=== PATIENT | female | born 1990 | race Caucasian/White ===

== ENCOUNTER 2019-02-07 05:12 | Inpatient (IN) | payer OTHER ==
[~2019-02-07] VITALS: Ht 167.6 cm; Wt 84.4 kg
[2019-02-07] MEDS ORDERED: LACTATED RINGERS 1000ML 1,000 ML IV PRN (06:37)
[2019-02-07] MEDS ORDERED: OXYTOCIN-LR 20 UNITS/1000 ML 1,000 ML IV ONE ×3 (06:43→19:05)
[2019-02-07] MEDS ORDERED: MEPERIDINE-PF 50 MG/ML SYG IVP PRN (06:45)
[2019-02-07] MEDS ORDERED: OXYTOCIN 10 USP UNITS/ML 20 UNIT in LACTATED RINGERS 1000ML 1,000 ML IV SCH (06:45)
[2019-02-07] MEDS ORDERED: PROMETHAZINE HCL 25 MG/ML 1ML AMPULE IM PRN (06:45)
[2019-02-07 07:15] VITALS: BP 118/68
[2019-02-07 07:26] LABS: APPEARANCE,URINE Cloudy (CLEAR); BILIRUBIN,URINE Negative (NEGATIVE); COLOR,URINE Yellow (YELLOW); GLUCOSE, URINE (UA) Negative (NEGATIVE); KETONES,URINE Negative (NEGATIVE); LEUKOCYTE ESTERASE ,URINE Moderate (NEGATIVE); NITRATE,URINE Negative (NEGATIVE); OCCULT BLOOD,URINE Large (NEGATIVE); PH,URINE 6.5 (5.0-8.0); PROTEIN,URINE Negative (NEGATIVE)
[2019-02-07 07:30] LABS: BACTERIA,URINE Many /HPF (None Seen); RBC,URINE 0-1 /HPF (0-1); SQUAMOUS EPITHELIAL CELL,UR Few /HPF (0-2)
[2019-02-07 07:46] LABS: HEMATOCRIT 39.1 % (36-48); MEAN CORPUSCULAR HEMOGLOBIN 31.6 pg (27.0-33.0); MEAN CORPUSCULAR HGB CONC 34.5 g/dL (32.0-36.0); MEAN CORPUSCULAR VOLUME 91.5 fL (79-99); NUCLEATED RED BLOOD CELLS 0.1 % (0.0-0.19); PLATELET COUNT (AUTO) 266 K/uL (130-400); RED BLOOD CELL COUNT(AUTO) 4.27 MIL/uL (4.00-5.50); RED CELL DISTRIBUTION WIDTH 14.1 % (11.0-15.5)
[2019-02-07] MEDS ORDERED: EPHEDRINE SULFATE 50 MG/ML AMPULE IVP PRN (09:30)
[2019-02-07] MEDS ORDERED: LACTATED RINGERS 500 ML 500 ML IV PRN (09:30)
[2019-02-07] MEDS ORDERED: LIDOCAINE 2%-EPI 1:200,000 20 ML VIAL IJ SCH (09:30)
[2019-02-07] MEDS ORDERED: ROPIVACAINE 0.2% 100ML VIAL 100 ML EP SCH (09:30)
[2019-02-07] MEDS ORDERED: NALOXONE HCL 0.4 MG/1 ML ML IV PRN (09:30)
[2019-02-07] MEDS ORDERED: METHYLERGONOVINE MALEATE 0.2 MG/1 ML ML ONE ×2 (18:05→19:14)
[2019-02-07] MEDS ORDERED: LANOLIN 30GM OINTMENT TP PRN (18:45)
[2019-02-07] MEDS ORDERED: BENZOCAINE/LANOLIN/ALOE VERA 60 ML AEROSOL TP PRN (18:45)
[2019-02-07] MEDS ORDERED: WITCH HAZEL 1 PAD TP PRN (18:45)
[2019-02-07] MEDS ORDERED: MEASLES/MUMPS/RUBELLA VACCINE, LIVE 0.5 ML/VIAL SQ PRN (18:45)
[2019-02-07] MEDS ORDERED: HYDROCODONE/ACETAMINOPHEN 5/325 MG TAB PO PRN (18:45)
[2019-02-07] MEDS ORDERED: ACETAMINOPHEN-CODEINE 300/30MG TAB PO PRN (18:45)
[2019-02-07] MEDS ORDERED: METHYLERGONOVINE MALEATE 0.2 MG/1 ML ML IM PRN (19:00)
[2019-02-07] MEDS ORDERED: OXYTOCIN-LR 20 UNITS/1000 ML 1,000 ML IV SCH (19:00)
[2019-02-07] MEDS: IBUPROFEN 800 MG TAB PO SCH (19:07)
[2019-02-07] MEDS ORDERED: DOCUSATE SODIUM 100 MG CAP PO SCH (21:00)
[2019-02-07 21:18] VITALS: BP 108/68
[2019-02-07] MEDS: DOCUSATE SODIUM 100 MG CAP PO SCH (22:37)
[2019-02-07] MEDS ORDERED: ACETAMINOPHEN EXTRA STRENGTH 500 MG TABLET PO PRN (23:15)
[2019-02-07 23:23] VITALS: BP 102/51
[2019-02-08] MEDS: IBUPROFEN 800 MG TAB PO SCH ×3 (02:49→18:47)
[2019-02-08 04:15] VITALS: BP 111/73
[2019-02-08 07:30] VITALS: BP 103/48
--- NOTE | 2019-02-08 08:10 | NUR ---
ASSESSMENT: RECEIVED RESTING IN BED WITH HER BABY, IN THE ROOM. EXPLAINED POC, SITZ BATH , SHOWER AND UNDERSTANDING VERBALIZED, CALL PAYAN AT HER SIDE.
[2019-02-08 08:20] LABS: HEPATITIS Bs ANTIGEN SCREEN P Negative (Negative)
[2019-02-08] MEDS: DOCUSATE SODIUM 100 MG CAP PO SCH (08:31)
--- NOTE | 2019-02-08 08:48 | NUR ---
HYGEINE: TAKING SITZ BATH AND SHOWER.
--- NOTE | 2019-02-08 08:55 | NUR ---
ASSESSMENT: DR VENTURA TALKING WITH PT. PT STATES FEELS LIGHTHEADED, ASSISTED BACK IN BED, AND ENCOURAGED TO DRINK MORE FLUIDS, H&H WILL BE DRAWN. ONCE LAYING DOWN STATES FEELS BETTER. CALL PAYAN AT HER SIDE. INSTRUCTED TO CALL FOR ASSISTANCE WHEN GETTING UP. AT HER SIDE.
[2019-02-08 09:19] LABS: HEMATOCRIT 28.8 % (36-48)
--- NOTE | 2019-02-08 09:48 | NUR ---
lab values: REPORTED H&H OF 10.1, 28.[address] Darby VENTURA. ORDERS TO DISCHARGE HOME THIS PM, PT AND MADE AWARE.
[2019-02-08 11:32] VITALS: BP 99/53
--- NOTE | 2019-02-08 13:20 | NUR ---
BONDING: BREAST FEEDING. STATES FEELS BETTER, DENIES DIZZINESS.
[2019-02-08 16:40] VITALS: BP 92/56
--- NOTE | 2019-02-08 18:10 | NUR ---
DISCHARGE: DISCHARGE INSTRUCTIONS GIVEN TO PT ON SELF CARE POST VAG DELIVERY WITH 3RD DEGREE VAG LACERATION. SITZ BATH, ANEMIA, DIETS TO FOLLOW. REVIEWED RX'S AND TO FOLLOW WITH DR VENTURA, ON 02/26 AT 0930 AM OR SOONER IF NEEDED. UNDERSTANDING VERBALIZED AND COPIES OF ALL INSTRUCTIONS GIVEN TO PT.
--- NOTE | 2019-02-08 18:55 | NUR ---
DISCHARGE: DISCHARGED HOME WITH BABY IN HER ARMS VIA W/C TO PRIVATE CAR WITH .
== END 2019-02-08 18:55 | disposition home or self-care (01) | DRG 768 ==
LOC: LDH 05:12 → OBSVTOIN 05:12 → LDH 06:32 → WSH 21:14
PROVIDERS: ADMIT Obstetrics & Gynecology; ATTEND Obstetrics & Gynecology
PROC: 10E0XZZ Delivery of Products of Conception, External Approach (ICD-10-PCS; principal; 2019-02-07)
PROC: 0DQR0ZZ Repair Anal Sphincter, Open Approach (ICD-10-PCS; 2019-02-07)
PROC: 3E033VJ Introduction of Other Hormone into Peripheral Vein, Percutaneous Approach (ICD-10-PCS; 2019-02-07)
PROC: 3E0134Z Introduction of Serum, Toxoid and Vaccine into Subcutaneous Tissue, Percutaneous Approach (ICD-10-PCS; 2019-02-07)
PROC: 3E0R3BZ Introduction of Anesthetic Agent into Spinal Canal, Percutaneous Approach (ICD-10-PCS; 2019-02-07)
PROC: 00HU33Z Insertion of Infusion Device into Spinal Canal, Percutaneous Approach (ICD-10-PCS; 2019-02-07)
DX: O69.1XX0 Labor and delivery complicated by cord around neck, with compression, not applicable or unspecified (principal); Z37.0 Single live birth; O71.4 Obstetric high vaginal laceration alone; O62.2 Other uterine inertia; Z3A.39 39 weeks gestation of pregnancy; Z23 Encounter for immunization
CPT/HCPCS: 36415; 81001; 85014; 85018; 85027; 86592; 86850; 86900; 86901; 87340; A4314; G0378; J2210; J2590; J2795; J3490; J7120